=== PATIENT | female | born 1960 | race Hispanic/Latino ===

== ENCOUNTER → 2020-08-25 | Outpatient (CLI) | payer BC ==
[~2020-08-25] MED LIST: SIMVASTATIN80 MG PO
== END ==
LOC: RAD 12:10
PROVIDERS: ATTEND Family Medicine
DX: R05 Cough (principal)
CPT/HCPCS: 71046

== ENCOUNTER 2020-12-09 10:29 | Emergency (ER) | payer BC ==
[~2020-12-09] VITALS: Ht 157.5 cm; Wt 67.1 kg
[2020-12-09 11:25] LABS: BASOPHILS % 0.5 % (0.0-1.0); EOSINOPHILS # (AUTO) 0.1 (0.0-0.4); EOSINOPHILS % 1.5 % (0.0-6.0); HEMATOCRIT 39.1 % (34.2-44.1); HEMOGLOBIN 12.6 g/dL (12.0-16.0); LYMPHOCYTES # (AUTO) 1.8 (1.0-3.2); LYMPHOCYTES % 30.8 % (18.0-39.1); MEAN CORPUSCULAR HEMOGLOBIN 31.2 pg (28-32); MEAN CORPUSCULAR HGB CONC 32.2 g/dL (31-35); MEAN CORPUSCULAR VOLUME 96.8 fL (81-99); MONOCYTES # (AUTO) 0.5 (0.2-0.8); MONOCYTES % 7.6 % (4.4-11.3); NEUTROPHILS # (AUTO) 3.5 (2.1-6.9); NEUTROPHILS % 59.3 % (38.7-80.0); PLATELET COUNT 221 x10e3/uL (140-360); RED BLOOD COUNT 4.04 x10e6/uL (3.6-5.1); RED CELL DISTRIBUTION WIDTH 12.5 % (11.7-14.4)
[2020-12-09 11:58] LABS: ALBUMIN 4.2 g/dL (3.5-5.0); ALBUMIN/GLOBULIN RATIO 1.4 (0.8-2.0); CALCIUM 9.2 mg/dL (8.4-10.2); CREATININE, SERUM 0.65 mg/dL (0.57-1.11)
== END 2020-12-09 12:49 | disposition home or self-care (01) ==
LOC: ER 11:00
DX: R07.9 Chest pain, unspecified (principal)
CPT/HCPCS: 36415; 71045; 80053; 82550; 82553; 84484; 85025; 93005; 99283

== ENCOUNTER 2020-12-31 10:35 | Emergency (ER) | payer BC ==
[~2020-12-31] VITALS: Ht 165.1 cm; Wt 68.0 kg
[2020-12-31 13:25] VITALS: BP 126/70
== END 2020-12-31 13:27 | disposition home or self-care (01) ==
LOC: ER 11:19
DX: R51.9 Headache, unspecified (principal); R53.81 Other malaise
CPT/HCPCS: 99283